=== PATIENT | female | born 1980 | race Caucasian/White ===

== ENCOUNTER 2016-11-18 10:06 | Inpatient (IN) | payer BC, OTHER ==
[~2016-11-18] VITALS: Ht 149.9 cm; Wt 58.1 kg
[~2016-11-18 10:06] MED LIST: ASPI1TAB5 PO
[2016-11-18 10:52] LABS: *URINE HCG, QUAL NEGATIVE (NEGATIVE)
[2016-11-18 14:45] VITALS: BP 115/78
--- NOTE | 2016-11-18 14:45 | NUR ---
received from RR per bed awake alert and oriented, s/p total abdominal hysterectomy, lower abdominal dsg dry and intact, 02 at 2l/nc, vs taken, perez cath draining yellow urine, DVT pumps on, at bedside, routine admission care and initial assessment done, call light within reach, deep brathing exercises done- did fairly, IS provided
[2016-11-18 15:15] VITALS: BP 119/71
[2016-11-18] MEDS ORDERED: SUMA50TA PO (15:42)
[2016-11-18] MEDS ORDERED: OMEGA PO (15:42)
[2016-11-18] MEDS ORDERED: VITAMIN C PO (15:42)
[2016-11-18] MEDS ORDERED: VITAMIN B12 PO (15:42)
[2016-11-18] MEDS ORDERED: VITAMIN D PO (15:42)
[2016-11-18 15:45] VITALS: BP 116/71
--- NOTE | 2016-11-18 16:00 | NUR ---
taking sips of ice water- tolerated, denies of nausea, continue to monitor closely
[2016-11-18 16:37] VITALS: BP 115/73
--- NOTE | 2016-11-18 17:40 | NUR ---
MEDICATED WITH DILAUDID 1MG IV FOR C/O OF POSTOP PAIN IN THE ABDOMEN
--- NOTE | 2016-11-18 18:15 | NUR ---
STATES PAIN LESSER 4/10, DID IS UP TO 1500ML- REINFORCED, AT BEDSIDE, NO DISTRESS NOTED, NO BLEEDING NOTED, NO FLATUS, TOLERATING CLEAR LIQUID, NO NAUSEA, NO VOMITING, ALL NEEDS ATTENDED, VSS
[2016-11-18 20:00] VITALS: BP 109/65
--- NOTE | 2016-11-18 23:02 | NUR ---
PATIENT WITH IN THE ROOM. ABDOMINAL PAIN 6/10 GIVEN IV DILAUDID ORDERED. ENCOURAGED BREATHING EXERCISE AND TURNING IN BED. SURGICAL WOUND INTACT WITH NO ACTIVE BLEEDING. TRINIDAD IN PLACED DRAINING CLEAR YELLOW URINE.
[2016-11-19 00:06] VITALS: BP 98/54
[2016-11-19 04:00] VITALS: BP 100/58
--- NOTE | 2016-11-19 06:01 | NUR ---
PATIENT SLEPT INTERMITTENTLY WITH MILD PAIN COMPLAINT. TRINIDAD DISCONTINUED AT 6 AM ORDERED. DUE TO VOID AT 10-12 NOON.
--- NOTE | 2016-11-19 06:27 | NUR ---
SURGICAL WOUND DRESSING SOAK WITH FRESH BLOOD, DRESSING REINFORCED .
[2016-11-19 06:32] LABS: BASOPHILS % (AUTO) 0.1 % (0.0-2.0); EOSINOPHILS # (AUTO) 0.1 K/uL (0.0-0.7); EOSINOPHILS % (AUTO) 0.6 % (0.0-7.0); HEMATOCRIT 33.7 % (37-47); HEMOGLOBIN 11.4 G/DL (12.0-16.0); LYMPHOCYTES # (AUTO) 1.5 K/UL (0.8-4.8); LYMPHOCYTES % (AUTO) 8.6 % (20.5-51.5); MEAN CORPUSCULAR HEMOGLOBIN 29.1 UUG (27.0-31.0); MEAN CORPUSCULAR HGB CONC 34 g/dL (32.0-37.0); MEAN CORPUSCULAR VOLUME 86.2 FL (81.0-99.0); MONOCYTES # (AUTO) 1.1 K/UL (0.1-1.30); MONOCYTES % (AUTO) 6.5 % (0.0-11.0); NEUTROPHILS # (AUTO) 14.8 K/UL (1.8-8.9); NEUTROPHILS % (AUTO) 84.2 % (38.5-71.5); PLATELET COUNT (AUTO) 279 K/UL (150-450); RED BLOOD CELL COUNT(AUTO) 3.91 MIL/UL (4.2-5.4); WHITE BLOOD COUNT (AUTO) 17.5 K/UL (4.0-11.2)
[2016-11-19 06:40] LABS: IRON, SERUM 42 ug/dL (50-175)
[2016-11-19 06:54] LABS: ALANINE AMINOTRANSFERASE 22 U/L (14-59); ALKALINE PHOSPHATASE 45 U/L (50-136); ASPARTATE AMINOTRANSFERASE 15 U/L (15-37); BILIRUBIN,TOTAL 0.8 mg/dL (0.2-1.0); CARBON DIOXIDE 29 mmol/L (21-32); CHLORIDE 107 mmol/L (98-107); CHOLESTEROL 179 mg/dL (<200); CREATININE 0.5 mg/dL (0.6-1.3); GLUCOSE 118 mg/dL (74-106); HDL CHOLESTEROL 70 mg/dL (40-60); MAGNESIUM 1.5 mg/dL (1.8-2.4); PHOSPHOROUS 3.9 mg/dL (2.5-4.9); POTASSIUM 4.1 mmol/L (3.5-5.1); TOTAL PROTEIN, SERUM 5.9 g/dL (6.4-8.2); TRIGLYCERIDES 48 MG/DL (30-150); UREA NITROGEN, BLOOD 5 mg/dL (7-18)
--- NOTE | 2016-11-19 08:00 | NUR ---
awake alert and oriented, states feeling better today, denies of nausea, explained plan of care- verbalized understanding, will check for voiding, lower abdominal dag dry and intact, no vaginal bleeding noted, incentive spirometry reinforced, call light within reach, inforfmed of ambulation in the [address] after breakfast- pt agreed
--- NOTE | 2016-11-19 09:00 | NUR ---
up to BR and voided qs
--- NOTE | 2016-11-19 10:00 | NUR ---
ambulated in the hallway and tolerated well- states would like to be still on full liquid diet for lunch
[2016-11-19 11:27] VITALS: BP 101/62
--- NOTE | 2016-11-19 15:00 | NUR ---
seen by Dr Werner- tariq removed- incision with gatito clean and dry. IVF d/cd
[2016-11-19 15:49] VITALS: BP 91/52
--- NOTE | 2016-11-19 16:00 | NUR ---
ambulated in the hallway and tolerated well, taking fluids well and voiding qs
--- NOTE | 2016-11-19 18:16 | NUR ---
dresting in bed, denies of pain, all needs attended and met, call light within reach, no bleeding noted on surgical site
[2016-11-19 20:41] VITALS: BP 127/69
[2016-11-20 00:05] VITALS: BP 121/67
--- NOTE | 2016-11-20 02:01 | NUR ---
FEVER 100.1 LAST NIGHT THEN RESOLVED TO 98.0 COMPLAINT OF PAIN 7/10 GIVEN PRN PAIN MEDS. SURGICAL WOUND LOOKS CLEAN AND DRY NO ACTIVE BLEEDING NOTED. CALL LIGHT WITHIN REACH.
[2016-11-20 05:41] VITALS: BP 116/69
--- NOTE | 2016-11-20 06:09 | NUR ---
RE: PAIN IS RESOLVED VERBALIZED HAVING A GOOD SLEEP. ABDOMINAL WOUND CLEAN AND DRY. ALL NEEDS ATTENDED
[2016-11-20 06:37] LABS: BASOPHILS % (AUTO) 0.3 % (0.0-2.0); EOSINOPHILS # (AUTO) 0.1 K/uL (0.0-0.7); EOSINOPHILS % (AUTO) 0.7 % (0.0-7.0); HEMATOCRIT 32.5 % (37-47); HEMOGLOBIN 10.9 G/DL (12.0-16.0); LYMPHOCYTES # (AUTO) 3.5 K/UL (0.8-4.8); LYMPHOCYTES % (AUTO) 31.4 % (20.5-51.5); MEAN CORPUSCULAR HEMOGLOBIN 29.1 UUG (27.0-31.0); MEAN CORPUSCULAR HGB CONC 34 g/dL (32.0-37.0); MEAN CORPUSCULAR VOLUME 86.6 FL (81.0-99.0); MONOCYTES # (AUTO) 0.8 K/UL (0.1-1.30); NEUTROPHILS # (AUTO) 6.6 K/UL (1.8-8.9); NEUTROPHILS % (AUTO) 60.6 % (38.5-71.5); PLATELET COUNT (AUTO) 245 K/UL (150-450); RED BLOOD CELL COUNT(AUTO) 3.75 MIL/UL (4.2-5.4)
[2016-11-20 07:03] LABS: CREATININE 0.6 mg/dL (0.6-1.3); MAGNESIUM 1.8 mg/dL (1.8-2.4); PHOSPHOROUS 2.8 mg/dL (2.5-4.9); POTASSIUM 4.4 mmol/L (3.5-5.1)
--- NOTE | 2016-11-20 07:15 | NUR ---
PATIENT RECEIVED IN ROOM ALERT AWAKE IN NO ACUTE DISTRESS. DENIED PAIN AT THIS TIME. INCISION SITE WITH AIDEN INTACT, EDGES WELL APPROX. NO S/S OF INFECTION NOTED.
--- NOTE | 2016-11-20 08:00 | NUR ---
PATIENT AMBULATING AROUND THE UNIT.
[2016-11-20 11:42] VITALS: BP 99/64
[2016-11-20 15:12] VITALS: BP 91/55
--- NOTE | 2016-11-20 16:15 | NUR ---
DISCHARGING PATIENT HOME IN A STABLE CONDITION. DISCHARGE INSTRUCTIONS PROVIDED. LIST OF BELONGINGS SIGNED AND ALL WAS TAKEN. PRESCRIPTIONS PROVIDED. REFUSED TO SPEAK TO PHARMACIST REGARDING NEW PRESCRIPTIONS. PATIENT LEAVING VIA PRIVATE CAR ACCOMPANIED BY DAUGHTER. Addendum: 11/20/16 at 1707 by PHYLLIS GERARD RN IV REMOVED. PRESSURE APPLIED AND HEMOSTASIS ACHIEVED.
== END 2016-11-20 16:15 | disposition home or self-care (01) | DRG 743 ==
LOC: DS 10:06 → MED 14:32
PROVIDERS: ADMIT Obstetrics & Gynecology; ATTEND Internal Medicine
DX: N80.0 Endometriosis of uterus (principal); E83.42 Hypomagnesemia; E78.5 Hyperlipidemia, unspecified; K29.70 Gastritis, unspecified, without bleeding; R10.2 Pelvic and perineal pain; N83.8 Other noninflammatory disorders of ovary, fallopian tube and broad ligament; N83.202 Unspecified ovarian cyst, left side; N83.201 Unspecified ovarian cyst, right side; Z80.3 Family history of malignant neoplasm of breast; D64.9 Anemia, unspecified; G89.29 Other chronic pain; G43.909 Migraine, unspecified, not intractable, without status migrainosus; Z79.899 Other long term (current) drug therapy
CPT/HCPCS: 36415; 83550; 83735; 84100; 84703; 85025; 86850; 86900; 86901; A4649; A4663; J0690; J1100; J1170; J1885; J2250; J2405; J2710; J3010; J3490; J7120; L8699

== ENCOUNTER 2018-11-03 09:39 | Emergency (ER) | payer BC, MEDICAID ==
[~2018-11-03] VITALS: Ht 149.9 cm; Wt 56.7 kg
[~2018-11-03 09:39] MED LIST changes: +ASPI-966 PO; -ASPI1TAB5 PO; +OMEGA PO; +SUMA50TA PO; +VITAMIN B12 PO; +VITAMIN C PO; +VITAMIN D PO
[2018-11-03] MEDS ORDERED: CLIDINIUM PO (10:04)
[2018-11-03] MEDS ORDERED: [UNRECOGNIZED DRUG - OTHER] PO (10:04)
[2018-11-03] MEDS ORDERED: METOCLOPRAMIDE HCL 10 MG/2 ML VIAL ONE (10:23)
[2018-11-03] MEDS ORDERED: KETOROLAC TROMETHAMINE 15 MG INJ ONE (10:23)
[2018-11-03] MEDS ORDERED: IV NORMAL SALINE 1000 ML BAG IV ONE (10:30)
[2018-11-03] MEDS ORDERED: METOCLOPRAMIDE HCL 10 MG/2 ML VIAL IV ONE (10:30)
[2018-11-03] MEDS ORDERED: KETOROLAC TROMETHAMINE 15 MG INJ IV ONE (10:30)
[2018-11-03 10:39] LABS: CARBON DIOXIDE 27 mmol/L (21-32); CHLORIDE 104 mmol/L (98-107); CREATININE 0.6 mg/dL (0.6-1.3); GLUCOSE 92 mg/dL (74-106); POTASSIUM 4.3 mmol/L (3.5-5.1); UREA NITROGEN, BLOOD 11 mg/dL (7-18)
[2018-11-03 10:40] LABS: *BILIRUBIN,URIN NEGATIVE (NEGATIVE); *CLARITY,URINE SLIGHTLY CLOUDY (CLEAR); *COLOR,URINE YELLOW (YELLOW); *KETONES,URINE NEGATIVE (NEGATIVE); *UROBILINOGEN,URINE 0.2 E.U./dl (NORMAL); LEUKOCYTE ESTERASE ,URINE NEGATIVE (NEGATIVE); NITRITE, URINE NEGATIVE (NEGATIVE); PH,URINE 7.5 (5.0-8.0); UGLUCOSE NEGATIVE (NEGATIVE)
[2018-11-03 10:41] LABS: BASOPHILS % (AUTO) 0.5 % (0.0-2.0); EOSINOPHILS # (AUTO) 0.2 K/uL (0.0-0.7); EOSINOPHILS % (AUTO) 2.2 % (0.0-7.0); HEMATOCRIT 39.2 % (31.2-41.9); HEMOGLOBIN 13.3 g/dL (10.9-14.3); LYMPHOCYTES # (AUTO) 2.5 K/uL (20.0-40.0); LYMPHOCYTES % (AUTO) 31.5 % (20.5-51.5); MEAN CORPUSCULAR HEMOGLOBIN 29.3 uug (24.7-32.8); MEAN CORPUSCULAR HGB CONC 34 g/dL (32.3-35.6); MEAN CORPUSCULAR VOLUME 86.4 fL (75.5-95.3); MONOCYTES # (AUTO) 0.4 K/uL (2.0-10.0); MONOCYTES % (AUTO) 5.2 % (0.0-11.0); NEUTROPHILS # (AUTO) 4.9 K/uL (1.8-8.9); NEUTROPHILS % (AUTO) 60.6 % (38.5-71.5); PLATELET COUNT (AUTO) 309 K/uL (179-408); RED BLOOD CELL COUNT(AUTO) 4.53 MIL/uL (3.63-4.92); WHITE BLOOD COUNT (AUTO) 8.1 K/uL (3.8-11.8)
[2018-11-03 10:46] LABS: ALANINE AMINOTRANSFERASE 19 U/L (14-59); ALKALINE PHOSPHATASE 62 U/L (50-136); ASPARTATE AMINOTRANSFERASE 13 U/L (15-37); BILIRUBIN,DIRECT 0.1 mg/dL (0.0-0.2); BILIRUBIN,TOTAL 0.3 mg/dL (0.2-1.0); LIPASE 74 U/L (73-393); TOTAL PROTEIN, SERUM 7.2 g/dL (6.4-8.2)
[2018-11-03 10:52] LABS: *BLOOD, URINE TRACE (NEGATIVE)
[2018-11-03 11:01] LABS: BACTERIA,URINE FEW /HPF (NONE SEEN); RBC,URINE 0-3 /HPF (0-3); SQUAMOUS EPITHELIAL CELL,UR FEW /HPF (NONE SEEN); URINE AMORPHOUS PHOSPHATES FEW /HPF; WBC,URINE 0-3 /HPF (0-3)
[2018-11-03] MEDS ORDERED: IV NORMAL SALINE 250 ML IV ONE (12:04)
[2018-11-03] MEDS ORDERED: IOHEXOL 300MG/ML 100 ML INFUS..BTL ONE (12:04)
[2018-11-03] MEDS ORDERED: SWABABLE VALVE TRANSFER SET EA MC ONE (12:04)
--- NOTE | 2018-11-03 13:15 | NUR ---
IV removed. Catheter intact and site benign. Pressure and 4x4 gauze applied to site. No bleeding noted. Patient discharged to home in stable conditon. Written and verbal after care instructions given. Patient verbalizes understanding of instructions. Copies of all the tests results provided per patient's request.
== END 2018-11-03 13:18 | disposition home or self-care (01) ==
LOC: ER 09:39
DX: R10.11 Right upper quadrant pain (principal); G43.909 Migraine, unspecified, not intractable, without status migrainosus; Z88.8 Allergy status to other drugs, medicaments and biological substances; Z79.82 Long term (current) use of aspirin; Z79.899 Other long term (current) drug therapy; Z90.710 Acquired absence of both cervix and uterus
CPT/HCPCS: 36415; 71045; 74177; 76700; 80048; 80076; 81000; 81001; 83690; 84484; 84702; 85025; 85730; 93005; 96374; 96375; 99284; J1885; J2765; Q9967; 70030-TC; A4663; J7030; J7050

== ENCOUNTER 2018-12-06 09:58 | Outpatient (CLI) | payer BC, MEDICAID ==
[~2018-12-06 09:58] MED LIST changes: +CLIDINIUM PO; +[UNRECOGNIZED DRUG - OTHER] PO
[2018-12-06 10:51] LABS: BASOPHILS % (AUTO) 0.5 % (0.0-2.0); EOSINOPHILS # (AUTO) 0.2 K/uL (0.0-0.7); EOSINOPHILS % (AUTO) 1.7 % (0.0-7.0); HEMATOCRIT 40.3 % (31.2-41.9); HEMOGLOBIN 13.6 g/dL (10.9-14.3); LYMPHOCYTES # (AUTO) 2.6 K/uL (20.0-40.0); LYMPHOCYTES % (AUTO) 26.4 % (20.5-51.5); MEAN CORPUSCULAR HEMOGLOBIN 29.7 uug (24.7-32.8); MEAN CORPUSCULAR HGB CONC 34 g/dL (32.3-35.6); MEAN CORPUSCULAR VOLUME 88.2 fL (75.5-95.3); MONOCYTES # (AUTO) 0.8 K/uL (2.0-10.0); MONOCYTES % (AUTO) 7.8 % (0.0-11.0); NEUTROPHILS # (AUTO) 6.2 K/uL (1.8-8.9); NEUTROPHILS % (AUTO) 63.6 % (38.5-71.5); PLATELET COUNT (AUTO) 303 K/uL (179-408); RED BLOOD CELL COUNT(AUTO) 4.57 MIL/uL (3.63-4.92); WHITE BLOOD COUNT (AUTO) 9.8 K/uL (3.8-11.8)
[2018-12-06 10:57] LABS: BILIRUBIN,TOTAL 0.3 mg/dL (0.2-1.0); CREATININE 0.7 mg/dL (0.6-1.3); POTASSIUM 4.7 mmol/L (3.5-5.1); TOTAL PROTEIN, SERUM 7.5 g/dL (6.4-8.2)
[2018-12-06 11:36] LABS: THYROID STIMULATING HORMONE 0.919 mIU/mL (0.358-3.740)
[2018-12-07 04:06] LABS: TRIIODOTHYRONINE, FREE 2.9 pg/mL (2.0-4.4)
== END 2018-12-06 23:59 | disposition home or self-care (01) ==
LOC: LAB 09:58
PROVIDERS: ATTEND Internal Medicine Gastroenterology
DX: Z01.818 Encounter for other preprocedural examination (principal); R53.83 Other fatigue
CPT/HCPCS: 36415; 83970; 84443; 84481; 85025; 85610; 85730

== ENCOUNTER 2018-12-07 11:25 | Day surgery (SDC) | payer BC, MEDICAID ==
[2018-12-07] MEDS ORDERED: IRR STERIL WATER FOR IRR 1000 ML BOTTLE IR ONE ×2 (11:26)
[2018-12-07] MEDS ORDERED: PROPOFOL 200 MG/20 ML BOTTLE IV ONE (11:26)
[2018-12-07 12:06] LABS: *BILIRUBIN,URIN NEGATIVE (NEGATIVE); *BLOOD, URINE 2+ (NEGATIVE); *CLARITY,URINE CLEAR (CLEAR); *COLOR,URINE YELLOW (YELLOW); *KETONES,URINE NEGATIVE (NEGATIVE); *UROBILINOGEN,URINE 0.2 E.U./dl (NORMAL); LEUKOCYTE ESTERASE ,URINE NEGATIVE (NEGATIVE); NITRITE, URINE NEGATIVE (NEGATIVE); PH,URINE 5.5 (5.0-8.0); UGLUCOSE NEGATIVE (NEGATIVE)
[2018-12-07 12:11] LABS: MUCUS,URINE MODERATE /LPF (0-FEW); SQUAMOUS EPITHELIAL CELL,UR FEW /HPF (NONE SEEN)
[2018-12-07 12:14] LABS: BACTERIA,URINE FEW /HPF (NONE SEEN)
[2018-12-07 12:16] LABS: WBC,URINE 0-3 /HPF (0-3); YEAST,URINE RARE /HPF (NONE SEEN)
[2018-12-07] MEDS ORDERED: FENTANYL CITRATE 100 MCG/2 ML AMPUL ONE (13:10)
== END 2018-12-07 15:30 | disposition home or self-care (01) ==
LOC: DS 11:25
PROVIDERS: ATTEND Internal Medicine Gastroenterology
DX: R10.84 Generalized abdominal pain (principal); K63.89 Other specified diseases of intestine; K64.8 Other hemorrhoids; K59.09 Other constipation; R14.0 Abdominal distension (gaseous); R19.8 Other specified symptoms and signs involving the digestive system and abdomen; F41.9 Anxiety disorder, unspecified; F17.210 Nicotine dependence, cigarettes, uncomplicated; Z79.82 Long term (current) use of aspirin; Z79.899 Other long term (current) drug therapy; Z72.89 Other problems related to lifestyle; Z88.8 Allergy status to other drugs, medicaments and biological substances; Z90.710 Acquired absence of both cervix and uterus; Z98.890 Other specified postprocedural states; Z82.49 Family history of ischemic heart disease and other diseases of the circulatory system; Z83.3 Family history of diabetes mellitus
CPT/HCPCS: 45380; 81000; 81001; 87086; J3010; J7120; A4217; A4663; J3490

== ENCOUNTER → 2019-01-04 | Outpatient (CLI) | payer BC, MEDICAID ==
[2019-01-04 16:20] LABS: AMYLASE 93 U/L (25-115); LIPASE 100 U/L (73-393)
[2019-01-05 06:06] LABS: HEPATITIS B SURFACE AG Negative (Negative)
== END | disposition home or self-care (01) ==
LOC: LAB 15:36
PROVIDERS: ATTEND Internal Medicine Gastroenterology
DX: R10.9 Unspecified abdominal pain (principal)
CPT/HCPCS: 36415; 83690; 86803; 87340

== ENCOUNTER 2019-03-22 08:56 | Outpatient (CLI) | payer BC, MEDICAID ==
[2019-03-22 09:44] LABS: BASOPHILS % (AUTO) 0.5 % (0.0-2.0); EOSINOPHILS # (AUTO) 0.2 K/uL (0.0-0.7); HEMATOCRIT 42.3 % (31.2-41.9); HEMOGLOBIN 14.1 g/dL (10.9-14.3); LYMPHOCYTES # (AUTO) 2.4 K/uL (20.0-40.0); LYMPHOCYTES % (AUTO) 32.9 % (20.5-51.5); MEAN CORPUSCULAR HEMOGLOBIN 29.3 uug (24.7-32.8); MEAN CORPUSCULAR HGB CONC 33 g/dL (32.3-35.6); MEAN CORPUSCULAR VOLUME 87.8 fL (75.5-95.3); MONOCYTES # (AUTO) 0.5 K/uL (2.0-10.0); MONOCYTES % (AUTO) 7.2 % (0.0-11.0); NEUTROPHILS # (AUTO) 4.2 K/uL (1.8-8.9); NEUTROPHILS % (AUTO) 56.4 % (38.5-71.5); PLATELET COUNT (AUTO) 348 K/uL (179-408); RED BLOOD CELL COUNT(AUTO) 4.81 MIL/uL (3.63-4.92); WHITE BLOOD COUNT (AUTO) 7.4 K/uL (3.8-11.8)
[2019-03-22 09:50] LABS: *BILIRUBIN,URIN NEGATIVE (NEGATIVE); *CLARITY,URINE CLEAR (CLEAR); *COLOR,URINE LIGHT YELLOW (YELLOW); *KETONES,URINE NEGATIVE (NEGATIVE); *UROBILINOGEN,URINE 0.2 E.U./dl (NORMAL); LEUKOCYTE ESTERASE ,URINE NEGATIVE (NEGATIVE); NITRITE, URINE NEGATIVE (NEGATIVE); PH,URINE 7.5 (5.0-8.0); UGLUCOSE NEGATIVE (NEGATIVE)
[2019-03-22 09:54] LABS: CARBON DIOXIDE 28 mmol/L (21-32); CHLORIDE 101 mmol/L (98-107); CREATININE 0.7 mg/dL (0.6-1.3); GLUCOSE 90 mg/dL (74-106); UREA NITROGEN, BLOOD 10 mg/dL (7-18)
[2019-03-22 09:55] LABS: *BLOOD, URINE TRACE LYSED (NEGATIVE)
[2019-03-22 10:07] LABS: BACTERIA,URINE NONE SEEN /HPF (NONE SEEN); RBC,URINE 0-3 /HPF (0-3); SQUAMOUS EPITHELIAL CELL,UR FEW /HPF (NONE SEEN); WBC,URINE 0-3 /HPF (0-3)
== END 2019-03-22 23:59 | disposition home or self-care (01) ==
LOC: LAB 08:56
PROVIDERS: ATTEND Obstetrics & Gynecology
DX: Z01.818 Encounter for other preprocedural examination (principal); R10.2 Pelvic and perineal pain
CPT/HCPCS: 36415; 85025; 85730

== ENCOUNTER 2019-03-29 08:11 | Day surgery (SDC) | payer BC, MEDICAID ==
[2019-03-29] MEDS ORDERED: NEOSTIGMINE METHYLSULFATE 10 MG/10 ML VIAL IM ONE (08:12)
[2019-03-29] MEDS ORDERED: ONDANSETRON 4 MG/2 ML VIAL IV ONE (08:12)
[2019-03-29] MEDS ORDERED: METOCLOPRAMIDE HCL 10 MG/2 ML VIAL IV ONE (08:12)
[2019-03-29] MEDS ORDERED: KETOROLAC TROMETHAMINE 30 MG INJ IM ONE (08:12)
[2019-03-29] MEDS ORDERED: IV NORMAL SALINE 1000 ML BAG IV ONE ×2 (08:12)
[2019-03-29] MEDS ORDERED: SEVOFLURANE 250 ML BOTTLE IH ONE (08:12)
[2019-03-29] MEDS ORDERED: GLYCOPYRROLATE 0.2 MG/ML VIAL IJ ONE (08:12)
[2019-03-29] MEDS ORDERED: PROPOFOL 200 MG/20 ML BOTTLE IV ONE (08:12)
[2019-03-29] MEDS ORDERED: CEFAZOLIN 1 G VIAL IM ONE (08:12)
[2019-03-29] MEDS ORDERED: LIDOCAINE-MPF 2% 5 ML VIAL IJ ONE (08:12)
[2019-03-29] MEDS ORDERED: DEXAMETHASONE SOD PHOSPHATE 4 MG INJ IV ONE (08:12)
[2019-03-29] MEDS ORDERED: VECURONIUM BROMIDE 10 MG VIAL IV ONE (08:12)
[2019-03-29] MEDS ORDERED: IV LACTATED RINGERS SOLUTION 1,000 ML BAG IV ONE (08:12)
[2019-03-29] MEDS ORDERED: BUPIVACAINE/EPI PF 0.25% 30 ML VIAL ONE (08:32)
[2019-03-29] MEDS ORDERED: SCOPOLAMINE HYDROBROMIDE 1.5 MG PATCH TD ONE (08:45)
[2019-03-29] MEDS ORDERED: FENTANYL CITRATE 100 MCG/2 ML AMPUL ONE ×2 (08:57→10:51)
[2019-03-29] MEDS ORDERED: HYDROMORPHONE 2 MG/1 ML DISP.SYRIN ONE (10:03)
== END 2019-03-29 13:15 | disposition home or self-care (01) ==
LOC: DS 08:11
PROVIDERS: ATTEND Obstetrics & Gynecology
DX: N73.6 Female pelvic peritoneal adhesions (postinfective) (principal); G43.909 Migraine, unspecified, not intractable, without status migrainosus; F41.9 Anxiety disorder, unspecified; Z88.8 Allergy status to other drugs, medicaments and biological substances; Z79.82 Long term (current) use of aspirin; Z79.899 Other long term (current) drug therapy; Z72.89 Other problems related to lifestyle; Z87.440 Personal history of urinary (tract) infections; Z90.710 Acquired absence of both cervix and uterus; Z98.890 Other specified postprocedural states
CPT/HCPCS: 58660; J0690; J1100; J1170; J1885; J2405; J2710; J2765; J3010 ×2; J3490 ×4; J7120 ×2; A4663; J7030